=== PATIENT | male | born 1995 | race Hispanic/Latino ===

== ENCOUNTER 2024-08-15 06:52 | Day surgery (SDC) | payer MEDICAID ==
[2024-08-11 11:08] VITALS: BP 132/86; PULSE 69; RESP 18; TEMP 98.4
[2024-08-11 11:18] LABS: BASOPHILS # (AUTO) 0.03 K/uL (0.00-0.20); BASOPHILS % (AUTO) 0.7 % (0.0-5.0); EOSINOPHILS # (AUTO) 0.22 K/uL (0.00-0.70); EOSINOPHILS % (AUTO) 5.3 % (0.0-8.0); HEMATOCRIT 39.4 % (42-54); IMMATURE GRANULOCYTE ABSOLUTE 0.06 K/uL (0-1); LYMPHOCYTES # (AUTO) 1.1 K/uL (1.0-4.8); LYMPHOCYTES % (AUTO) 27.3 % (21.0-51.0); MEAN CORPUSCULAR HEMOGLOBIN 30.7 pg (27.0-33.0); MEAN CORPUSCULAR VOLUME 95.9 fL (79-99); MONOCYTES # (AUTO) 0.5 K/uL (0.1-1.0); MONOCYTES % (AUTO) 11.4 % (3.0-13.0); NEUTROPHILS # (AUTO) 2.2 K/uL (1.8-7.7); NEUTROPHILS % (AUTO) 53.9 % (40.0-77.0); PLATELET COUNT (AUTO) 171 K/uL (130-400); RED BLOOD CELL COUNT(AUTO) 4.11 MIL/uL (4.50-6.20); RED CELL DISTRIBUTION WIDTH 13.5 % (11.0-15.5); WHITE BLOOD COUNT (AUTO) 4.1 K/uL (4.8-10.8)
[2024-08-11 11:29] LABS: ALBUMIN 3.9 g/dL (3.5-5.0); BILIRUBIN,TOTAL 0.4 mg/dL (0.2-1.0); CREATININE 0.8 mg/dL (0.5-1.3); POTASSIUM 4.6 mmol/L (3.5-5.1); TOTAL PROTEIN, SERUM 7.6 g/dL (6.0-8.3)
[2024-08-11 11:44] LABS: INR <= 0.93 (0.85-1.15); PROTHROMBIN TIME 10.5 SEC (9.6-11.6)
[2024-08-11 11:46] LABS: PARTIAL THROMBOPLASTIN TIME 28.9 SEC (26.3-35.5)
--- NOTE | 2024-08-12 07:26 | EKG ---
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
[~2024-08-15] VITALS: Ht 170.2 cm; Wt 78.1 kg
[2024-08-15] VITALS (14 sets, daily range): BP systolic 96–133; BP diastolic 40–81; PULSE 70–80; RESP 15–18; TEMP 96.9–97.9
[2024-08-15] MEDS: BUPIvacaine/PF 0.25% 30ML VIAL IJ ONE
[2024-08-15] MEDS: LIDOCAINE 1%-EPI 1:100,000 20 ML VIAL ONE
[2024-08-15] MEDS ORDERED: proPOFol 10 MG/ML 20ML VIAL IV ONE (07:33)
[2024-08-15] MEDS ORDERED: LIDOCAINE PF 100MG/5ML (2%) SYRINGE 5ML ONE (07:33)
[2024-08-15] MEDS ORDERED: NEOSTIGMINE METHYLSULFATE 1MG/ML IV ONE (07:33)
[2024-08-15] MEDS ORDERED: SUCCINYLCHOLINE CHLORIDE 20 MG/ML 10 ML VIAL ONE (07:33)
[2024-08-15] MEDS ORDERED: dexaMETHasone SOD PHOSPHATE 10MG/ML 1ML VIAL ONE (07:33)
[2024-08-15] MEDS ORDERED: ondanSETRON 4MG INJ ONE ×2 (07:33→09:23)
[2024-08-15] MEDS ORDERED: GLYCOPYRROLATE 0.2 MG/ML 5 ML VIAL ONE (07:33)
[2024-08-15] MEDS ORDERED: rocuRONium bROMide 10MG/1ML 5ML VL ONE (07:33)
[2024-08-15] MEDS ORDERED: FENTanyl CITRate PF 50 MCG/1 ML 2ML VIAL ONE ×2 (07:34→09:50)
[2024-08-15] MEDS ORDERED: MIDAZOLAM HCL 1 MG/ML 2ML VIAL ONE (07:34)
[2024-08-15] MEDS: LACTATED RINGERS 1000ML 1,000 ML IV ONE (08:50)
[2024-08-15] MEDS: ceFAZolin SODIUM 2 GM VIAL ONE (08:50)
[2024-08-15] MEDS ORDERED: FAMOTIDINE 20MG VIAL IV ONE (09:15)
[2024-08-15] MEDS: SCOPOLAMINE HYDROBROMIDE 1 EACH ADH..PATCH TD ONE (09:17)
[2024-08-15] MEDS ORDERED: SILVER SULFADIAZINE CREAM 50 GM TP ONE (09:20)
[2024-08-15] MEDS ORDERED: LIDOCAINE HCL 2% JELLY 5 ML ONE (09:59)
--- NOTE | 2024-08-15 11:54 | OP ---
Operative Note: DATE OF PROCEDURE: 08/15/24 SURGEON: TONYA MAIER MD LINE INSTALLER REPAIRER: None ANESTHESIA: General with LMA ANESTHESIOLOGIST/CONSTRUCTION STONEMASON: GABBY PREOPERATIVE DIAGNOSIS: Hematochezia Internal Hemorrhoids Anal condyloma POSTOPERATIVE DIAGNOSIS: Same PROCEDURE: Suture Ligation of Internal Hemorrhoids x 3 Proctopexy x 3 Excision and fulguration of anal condyloma, simple ESTIMATED BLOOD LOSS: Minimal < 10cc INDICATIONS: Mr. Douglas is a very pleasant 29 year old male who presented with persistent hemtochezia despite medical management, he was offered rubber band ligation versus surgery. he wished to proceed with surgery. 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 Complications, risk, alternative and benefits were explained to the patient including but not limited to infection, bleeding, injury to the sphincter leading to incontinence, recurrence of disease and need for additional procedures. The patient voiced understanding and wished to proceed with surgery. All of the patient's questions were answered to his satisfaction. DESCRIPTION OF PROCEDURE: After informed consent was obtained, the patient was taken to the operating room and laid in the supine position. Once general anesthesia was obtained, the patient was carefully placed into the lithotomy position. Next the perianal area was prepped and draped in the usual sterile fashion. A timeout was performed to confirm the correct patient procedure. Next a bilateral pudendal block was performed followed by placement of a Fansler anoscope. The anal canal was inspected and there was severe internal hemorrhoids in the left lateral, right anterior and right posterior positions. We grasped the left lateral internal hemorrhoid and placed a buktmb-ow-navsp stitch at the apex of the hemorrhoid using a 0 Vicryl UR 6 suture. We then completely ligated the internal hemorrhoid using a running locking stitch down to the dentate line. This was then tied back onto itself to the proximal stitch for proctopexy. Hemostasis of the wound bed was obtained with minimal electrocautery. We grasped the right anterior internal hemorrhoid and placed a xrvogm-tm-nnhui stitch at the apex of the hemorrhoid using a 0 Vicryl UR 6 suture. We then completely ligated the internal hemorrhoid using a running locking stitch down to the dentate line. This was then tied back onto itself to the proximal stitch for proctopexy. Hemostasis of the wound bed was obtained with minimal electrocautery. We grasped the right posterior hemorrhoid and placed a rgsicz-pa-mtsad stitch at the apex of the hemorrhoid using a 0 Vicryl UR 6 suture. We then completely ligated the internal hemorrhoid using a running locking stitch down to the dentate line. This was then tied back onto itself to the proximal stitch for proctopexy. Hemostasis of the wound bed was obtained with minimal electrocautery. The anal canal was inspected and again hemostasis was obtained. Additional local anesthetic was injected for postoperative pain control. We then excised the right anterior perianal condyloma and sent it to pathology. We then completed the fulguration with electrocautery of the remaining tissue. Hemostasis obtained. Surgicel and gelfoam was placed into the anal canal for added hemostasis. A gauze dressing was applied to the anus. The patient tolerated the procedure well was taken to the recovery room in stable condition. I discussed the above with the patients mother at completion of the case. all counts reported as correct x2 by nursing staff. TONYA MAIER MD Aug 15, 2024 11:54
--- NOTE | 2024-08-15 12:25 | NUR ---
PT AMBULATING TO RESTROOM AND BACK NO SENSATION TO VOID AT THIS TIME DRINKING 3 CUPS OF WATER WITH NO N/V
--- NOTE | 2024-08-15 13:00 | NUR ---
CALLED DR MAIER TO MAKE AWARE PT HAS NOT VOIDED COMPLETELY ONLY SMALL CLEAR DROPS NOTED IN URINAL X 1 PT DENIES URGE TO VOIDED SCANNED BLADDER NOTED WITH 279 ML URINE . MADE AWARE PT HAS REFUSED GERMAN INSERTION AND I HAVE EXPLAINED TO PT AND MOTHER THAT IF UNABLE TO VOID HE WILL NEED TO GO TO THE ER NEAREST TO GET A GERMAN IF NOT HE RUNS RISK FOR BLADDER TRAUMA AND KIDNEY INJURY /INFECTION BOTH VERBALIZE UNDERSTANDING AND MOTHER SIGNS DC PAPERS TO HOME
== END 2024-08-15 13:20 ==
LOC: DAH 06:52
PROVIDERS: ATTEND Surgery
DX: K92.1 Melena (principal); K64.1 Second degree hemorrhoids; A63.0 Anogenital (venereal) warts; F41.9 Anxiety disorder, unspecified; F32.A Depression, unspecified; K59.09 Other constipation; K62.89 Other specified diseases of anus and rectum; K21.9 Gastro-esophageal reflux disease without esophagitis; K31.84 Gastroparesis; E66.9 Obesity, unspecified; Z98.890 Other specified postprocedural states; Z86.73 Personal history of transient ischemic attack (TIA), and cerebral infarction without residual deficits; Z79.899 Other long term (current) drug therapy; Z79.82 Long term (current) use of aspirin; Z68.27 Body mass index [BMI] 27.0-27.9, adult; Z88.0 Allergy status to penicillin
CPT/HCPCS: 80053; 85025; 85610; 85730; 36415; 93005; 46946; 46922; 88305; A6260; A4663; A4649 ×2; A4606; J7120; J3490 ×4; J3010 ×2; J1100; J0330; J0665; J2003; J2250; J2704; J2405 ×2; J2710; A4215; A4223; A4222; A4221; J0690

== ENCOUNTER → 2024-08-15 | Emergency (ER) | payer MEDICAID ==
[~2024-08-15] VITALS: Ht 167.6 cm; Wt 77.1 kg
[~2024-08-15] MED LIST: ASPI-1443 PO; BUPR-49 PO; CARV25TA PO; DIFL5DRO6 OD; DOCU100C33 PO; ENAL-91 PO; FERR240T10 PO; FOLI1TAB15 PO; OMEP40CA21 PO; ROSU10TA72 PO; VIT B12 SL; VIT D PO
[2024-08-15 17:26] VITALS: BP 131/92; PULSE 108; RESP 20; TEMP 99.2
--- NOTE | 2024-08-15 19:21 | NUR ---
PT CAME TO WINDOW. STATED HE ALREADY WENT TO VOID 4 TIMES. STATED HE WAS LEAVING AND WOULD COME BACK IF NEEDED.
--- NOTE | 2024-08-15 20:29 | ERN ---
ED Note History of Present Illness Stated Complaint: UNABLE TO PEE Chief Complaint: Urinary Retention Time Seen by MD: 17:08 Time Seen by Midlevel: 17:08 Dictation: Patient is a 29-year-old male with a history of hypertension, anemia, blindness who presents to the emergency department for urinary retention. Patient reports he had a hemorrhoid surgery done this morning and refused Hawy[place] earlier although he was not voiding. Patient denies any fevers. Denies any other complaints. Allergies: Coded Allergies: Penicillins (Unverified Allergy, Unknown, RASH , 06/10/17) Home Meds Reported Medications Omeprazole (Omeprazole) 40 Mg Capsule.dr, 1 CAP PO DAILY 08/11/24 Bupropion HCl (Bupropion Xl) 150 Mg Tab.er.24h, 1 TAB PO DAILY 08/11/24 Difluprednate (Difluprednate) 0.05 % Drops, 1 DROP OD QID, DROP 08/11/24 Rosuvastatin Calcium (Rosuvastatin Calcium) 10 Mg Tablet, 1 TAB PO DAILY 08/11/24 Docusate Sodium (Docusate Sodium) 100 Mg Capsule, 1 CAP PO BID 08/11/24 [Vit D] No Conflict Check, 1 TAB PO WEEKLY 08/11/24 [Vit B12] No Conflict Check, 1000 MCG SL DAILY 08/11/24 Ferrous Gluconate (Iron) 240 Mg (27 Mg Iron) Tablet, 240 MG PO DAILY, TAB 08/11/24 Aspirin (Aspirin EC) 81 Mg Tablet.dr, 81 MG PO AM, TAB 08/11/24 Carvedilol (Carvedilol) 25 Mg Tablet, 25 MG PO BID, TAB 08/11/24 Enalapril Maleate (Enalapril Maleate) 20 Mg Tablet, 20 MG PO BID, TAB 08/11/24 Folic Acid (Folic Acid) 1 Mg Tablet, 1 MG PO AM, TAB 06/10/17 Discontinued Reported Medications Difluprednate (Durezol) 5 Ml Drops, 5 ML OP every3 hours, DROP 06/10/17 Pantoprazole Sodium (Pantoprazole Sodium) 40 Mg Tablet.dr, 40 MG PO AM, TAB 06/10/17 Enalapril Maleate (Enalapril Maleate) 10 Mg Tablet, 10 MG PO BID, TAB 06/10/17 Atenolol (Atenolol) 25 Mg Tablet, 25 MG PO AM, TAB 06/10/17 Ferrous Gluconate (Ferrous Gluconate) 240 Mg Tablet, 240 MG PO TID, TAB 06/10/17 Past Medical History Past Medical History: Anemia, Hypertension, Other Additional Past Medical Hx: BLIND, KLIPPEL-TRENAUNAY SYNDROME Surgical History: Other Surgical History Other: HEMORRHOIDECTOMY RN Note Reviewed/Agreed w/PFSH: Yes Review of System Dictation Constitutional: Negative for fever,chills, and weight loss Eyes: Negative for injury, pain,redness, and discharge ENT: Negative for injury,pain or swelling Cardiovascular: Negative for chest pain, palpitations, and edema Respiratory: Negative for shortness of breath, cough, and wheezing, Abdomen/GI: Negative for abdominal pain, nausea, vomiting, diarrhea, and constipation Back: Negative for injury and pain : Negative for injury, bleeding and discharge positive for urinary retention MS/Extremity: Negative for injury and deformity Skin: Negative for rash, and discoloration Neuro: Negative for headache, weakness, numbness, tingling, and seizure Psych: Negative for suicide ideation, homicidal ideation, and hallucinations Initial Vital Sign VS Vital Signs Date Time Temp Pulse Resp B/P (MAP) Pulse Ox O2 Delivery O2 Flow Rate FiO2 08/15/24 17:26 99.1 108 20 131/92 98 Room Air 0 Physical Exam Dictation Vital Signs reviewed General Appearance: Alert, oriented x 3, no acute distress, well developed, nourished. Head and Face: non-traumatic. Eyes: , pink conjunctivas, eyelid no trauma, anterior chamber with arcus senilis. Ears: Pinnas intact and no signs of trauma or erythema ear canals clear and no discharge TM no erythema Nose: No discharge, no bleeding. Oropharynx: Mouth normal, tongue pink. pharynx clear,no erythema, tonsils no exudates, no abscesses noted, mucous membrane moist Neck: Supple, non-tender, no thyromegaly, no masses, no JVD, no bruits Breast:Deferred Chest:No tenderness, no crepitus, no paradoxical movement, no retractions Lungs:Clear, well-ventilated, symmetric, no rales, no wheezing, no rhonchi, no stridor, good breath sounds bilaterally Heart: Regular rate, regular rhythm, no murmur, no gallops Vascular: no peripheral edema, Abdomen: Soft, positive bowel sounds, nondistended, no guarding, nontender, no rebound, no masses no hepatomegaly, no splenomegaly, no Stone's sign, no hernias. Rectal: Deferred Genital: Deferred Neurological: Normal speech, motor function intact, sensory function intact Musculoskeletal: Neck nontender, full range of motion, back nontender, full range of motion, Extremities: nontender, full range of motion Skin: Color pink, dry, no turgor, no rash, no lacerations, no abrasions, no contusions. Lymphatic: Deferred Results (Laboratory/Radiology) Labs Reviewed?: Yes ED Course ED Course Orders Procedure Category Date Status Time Bladder Scan CPOE 08/15/24 Transmitted 17:39 Urinalysis Profile LAB 08/15/24 Logged 17:39 Nurse Driven Haywood ADINA 08/15/24 In Process Removal Pro 18:09 Vital Signs Date Time Temp Pulse Resp B/P (MAP) Pulse Ox O2 Delivery O2 Flow Rate FiO2 08/15/24 17:26 99.1 108 20 131/92 98 Room Air 0 Medical Decision Making MDM MDM Patient is a 29-year-old male with a history of hypertension, anemia, blindness who presents to the emergency department for urinary retention. Patient reports he had a hemorrhoid surgery done this morning and refused [place]wood earlier although he was not voiding. Patient denies any fevers. Denies any other complaints. Patient was able to void on four different occasions without difficulty. I did a bladder scan after patient's 1st void in he was still retaining about 350 mL of urine. Patient however did not want to wait for further evaluation and decided to elope. DX & DISP Disposition: AMA Departure Condition: Stable Referrals: CELSO MARTINEZ MD (PCP) I have reviewed the case, and I agree with, Diagnosis and Plan DOLORES GUZMANP Aug 15, 2024 20:29
== END ==
LOC: EDH 16:39
DX: R33.9 Retention of urine, unspecified (principal); I10 Essential (primary) hypertension; Z79.899 Other long term (current) drug therapy; Z88.0 Allergy status to penicillin
CPT/HCPCS: 99284